=== PATIENT | female | born 1990 | race African-American/Black ===

== ENCOUNTER 2016-09-30 13:59 | Outpatient (CLI) | payer OTHER ==
[2016-09-30] MEDS ORDERED: LACTATED RINGERS 1,000 ML ONE ×2 (14:34→20:55)
[2016-09-30] MEDS ORDERED: LACTATED RINGERS 1,000 ML IV ONE (14:37)
[2016-09-30 15:31] LABS: Basophils % (Auto) 0.2 % (0.0-1.8); Eosinophils % (Auto) 0.8 % (0.0-4.3); Hematocrit 37.4 % (30.3-42.9); Hemoglobin 12.7 gm/dl (10.1-14.3); Mean Corpuscular HGB Conc 34 % (30-34); Mean Corpuscular Hemoglobin 29 pg (28-32); Mean Corpuscular Volume 87 fl (79-97); Platelet Count 246 K/mm3 (140-440); Red Blood Count 4.32 M/mm3 (3.65-5.03); Red Cell Distribution Width 13.7 % (13.2-15.2)
[2016-09-30 16:03] LABS: Bilirubin,Urine NEG (Negative); Blood,Urine SM (Negative); Ketones,Urine NEG (Negative); Leukocyte Esterase,Urine NEG (Negative); Nitrite,Urine NEG (Negative); Protein,Urine <15 mg/dL mg/dL (Negative); Urobilinogen,Urine < 2.0 mg/dL (<2.0)
--- NOTE | 2016-09-30 17:41 | History and Physical Report ---
History of Present Illness Date of examination: 09/30/16 History of present illness: 26 yo EDC 11/11/15 @ 34.1 weeks gestation, presented to triage with c/o contractions. SVE: 4cm. consulted, orders for admit. First trimester entry into care at 7 weeks gestation. course complicated by gestational diabetes with glyburide po, [facility] comang't and short cervix noted at routine scan of 0.9cm with funneling. U/S on 09/13/16: no residual cervix noted. Past History Past Medical History: no pertinent history Past Surgical History: no surgical history Family/Genetic History: none Social history: - Obstetrical History Expected Date of Delivery: 11/10/16 Actual Gestation: 34 Week(s) 1 Day(s) : 2 Para: 1 Number of Living Children: 1 Medications and Allergies Allergies Allergy/AdvReac Type Severity Reaction Status Date / Time No Known Allergies Allergy Verified 09/30/16 14:12 Home Medications Medication Instructions Recorded Confirmed Last Taken Type Pnv with Ca,No.72/Iron/FA [Pnv 1 tab PO DAILY 09/30/16 09/30/16 09/30/16 09:00 History Plus Multivit Tab] 1 glyBURIDE [Glyburide] 1 tab PO BID 09/30/16 09/30/16 09/29/16 21:00 History 1 Review of Systems All systems: negative - Vital Signs Vital signs: Vital Signs Pulse BP 108 H 126/86 09/30/16 14:18 09/30/16 14:18 Temp Pulse Resp BP Pulse Ox 98.1 F 104 H 20 126/86 98 09/30/16 15:00 09/30/16 17:40 09/30/16 15:00 09/30/16 14:18 09/30/16 17:40 - Physical Exam Lungs: Positive: Normal air movement Genitourinary (Female): Positive: normal external genitalia, normal perenium Uterus: Positive: normal size, normal contour - Obstetrical FHR: category 1 Uterine Contraction Monitor Mode: External Cervical Dilatation: 3 Cervical Effacement Percentage: 50 station: high Results Result Diagrams: 09/30/16 14:37 Abnormal lab results 09/30/16 09/30/16 Range/Units 14:37 15:00 Seg Neutrophils % 76.5 H (40.0-70.0) % Ur Specific [place] 1.002 L (1.003-1.030) All other labs normal. Assessment and Plan A: IUP at 34.1 weeks PTL Gestational Diabetes P: MD low;t
[2016-09-30] MEDS ORDERED: MYLICON PO PRN (18:38)
[2016-09-30] MEDS ORDERED: TYLENOL PO PRN (18:38)
[2016-09-30] MEDS ORDERED: SUDAFED PO PRN (18:38)
[2016-09-30] MEDS ORDERED: DEEP SEA NS PRN (18:38)
[2016-09-30] MEDS ORDERED: COLACE PO PRN (18:38)
[2016-09-30] MEDS ORDERED: ZOFRAN IV PRN (18:38)
[2016-09-30] MEDS ORDERED: MILK OF MAGNESIA PO PRN (18:38)
[2016-09-30] MEDS ORDERED: ALUM-MAG HYDROX-SIMETH 200-200-20MG/5ML PO PRN (18:38)
[2016-09-30] MEDS ORDERED: ROBITUSSIN DM PO PRN (18:38)
[2016-09-30] MEDS ORDERED: AMBIEN PO PRN (18:38)
[2016-09-30] MEDS ORDERED: SENOKOT S PO PRN (18:38)
[2016-09-30] MEDS ORDERED: POLYCILLIN/NS 2 GM/100 ML 100 ML IV ONE (19:11)
[2016-09-30] MEDS ORDERED: SUBLIMAZE IV ONE (19:19)
[2016-10-01] MEDS: POLYCILLIN/NS 1 GM/50 ML 50 ML IV SCH ×6 (02:00→21:45)
[2016-10-01] MEDS ORDERED: SUBLIMAZE ONE ×2 (04:14→11:28)
[2016-10-01] MEDS ORDERED: LACTATED RINGERS 1,000 ML ONE (06:04)
--- NOTE | 2016-10-01 09:27 | Progress Note ---
Assessment and Plan HD#1 at 34 weeks PTL irreg contractions continue pain and IVF close monitor nst if labor proceed will implement a dose of BTM ( last dose series 08/25) await MFM consult GDM A1- nl sugars glyburide 2.5mg am and 5mg pm Subjective - Subjective Date of service: 10/01/16 (HD#2 PTL) Principal diagnosis: PTL Patient reports: movement normal, contractions (mild and not feeling them presently ), no loss of fluid, no vaginal bleeding Objective - Vital Signs Vital Signs: Vital Signs - 12hr 09/30/16 09/30/16 09/30/16 22:16 22:21 22:26 Temperature Pulse Rate 107 H 112 H 117 H Pulse Rate [ Right From Monitor] Respiratory Rate Blood Pressure [Right Arm] O2 Sat by Pulse 99 97 98 Oximetry 09/30/16 09/30/16 09/30/16 22:31 22:36 22:41 Temperature 97.1 F L Pulse Rate 116 H 104 H 107 H Pulse Rate [ 118 H Right From Monitor] Respiratory 18 Rate Blood Pressure [Right Arm] O2 Sat by Pulse 99 97 97 Oximetry 09/30/16 09/30/16 09/30/16 22:46 22:51 22:56 Temperature Pulse Rate 104 H 107 H 109 H Pulse Rate [ Right From Monitor] Respiratory Rate Blood Pressure [Right Arm] O2 Sat by Pulse 98 98 97 Oximetry 09/30/16 09/30/16 09/30/16 23:01 23:06 23:11 Temperature Pulse Rate 115 H 115 H 115 H Pulse Rate [ Right From Monitor] Respiratory Rate Blood Pressure [Right Arm] O2 Sat by Pulse 97 98 98 Oximetry 09/30/16 09/30/16 10/01/16 23:16 23:21 04:02 Temperature Pulse Rate 114 H 122 H 116 H Pulse Rate [ Right From Monitor] Respiratory Rate Blood Pressure [Right Arm] O2 Sat by Pulse 96 96 99 Oximetry 10/01/16 10/01/16 10/01/16 04:07 04:12 04:15 Temperature Pulse Rate 98 H 93 H 98 H Pulse Rate [ Right From Monitor] Respiratory Rate Blood Pressure [Right Arm] O2 Sat by Pulse 100 98 94 Oximetry 10/01/16 10/01/16 10/01/16 04:17 04:22 04:23 Temperature Pulse Rate 101 H 93 H Pulse Rate [ Right From Monitor] Respiratory 18 Rate Blood Pressure [Right Arm] O2 Sat by Pulse 96 98 Oximetry 10/01/16 10/01/16 10/01/16 04:27 04:32 04:37 Temperature Pulse Rate 87 93 H 94 H Pulse Rate [ Right From Monitor] Respiratory Rate Blood Pressure [Right Arm] O2 Sat by Pulse 98 100 100 Oximetry 10/01/16 10/01/16 10/01/16 04:42 04:47 04:52 Temperature Pulse Rate 84 82 83 Pulse Rate [ Right From Monitor] Respiratory Rate Blood Pressure [Right Arm] O2 Sat by Pulse 100 100 100 Oximetry 10/01/16 10/01/16 10/01/16 04:57 05:02 05:07 Temperature Pulse Rate 76 93 H 92 H Pulse Rate [ Right From Monitor] Respiratory Rate Blood Pressure [Right Arm] O2 Sat by Pulse 100 97 97 Oximetry 10/01/16 10/01/16 10/01/16 05:12 05:17 05:22 Temperature Pulse Rate 89 86 81 Pulse Rate [ Right From Monitor] Respiratory Rate Blood Pressure [Right Arm] O2 Sat by Pulse 96 96 97 Oximetry 10/01/16 10/01/16 10/01/16 05:27 05:32 05:37 Temperature Pulse Rate 86 85 85 Pulse Rate [ Right From Monitor] Respiratory Rate Blood Pressure [Right Arm] O2 Sat by Pulse 96 97 96 Oximetry 10/01/16 10/01/16 10/01/16 05:42 05:47 05:52 Temperature Pulse Rate 82 82 76 Pulse Rate [ Right From Monitor] Respiratory Rate Blood Pressure [Right Arm] O2 Sat by Pulse 97 98 98 Oximetry 10/01/16 10/01/16 10/01/16 08:21 08:23 08:28 Temperature 98.1 F Pulse Rate 96 H 118 H Pulse Rate [ 95 H Right From Monitor] Respiratory 18 Rate Blood Pressure 114/72 [Right Arm] O2 Sat by Pulse 100 100 99 Oximetry - Exam Breasts: normal Cardiovascular: Regular rate, Normal S1, Normal S2, No murmurs Abdomen: Present: normal appearance, soft, normal bowel sounds. Absent: distention, tenderness Vulva: both: normal Uterus: Present: normal FHR: auscultation normal, category 1 Uterine Contraction Monitor Mode: External Cervical Dilatation: 3 Cervical Effacement Percentage: 50 station: -4 Uterine Contraction Pattern: Irregular Uterine Contraction Intensity: Mild Deep Tendon Reflex Grade: Normal +2 - Labs Labs: Abnormal Labs 09/30/16 09/30/16 10/01/16 14:37 15:00 00:21 Seg Neutrophils % 76.5 H POC Glucose 69 L Ur Specific [place] 1.002 L Laboratory Results - last 24 hr 09/30/16 09/30/16 09/30/16 14:37 15:00 15:00 WBC 10.0 RBC 4.32 Hgb 12.7 Hct 37.4 MCV 87 MCH 29 MCHC 34 RDW 13.7 Plt Count 246 Lymph % (Auto) 16.8 [place] % (Auto) 5.7 Eos % (Auto) 0.8 Baso % (Auto) 0.2 Lymph # 1.7 [place] # 0.6 Eos # 0.1 Baso # 0.0 Seg Neutrophils % 76.5 H Seg Neutrophils # 7.6 POC Glucose Urine Color Straw Urine Turbidity Clear Urine pH 7.0 Ur Specific [place] 1.002 L Urine Protein <15 mg/dl Urine Glucose (UA) Neg Urine Ketones Neg Urine Blood Sm Urine Nitrite Neg Urine Bilirubin Neg Urine Urobilinogen < 2.0 Ur Leukocyte Esterase Neg Urine WBC (Auto) 0.0 Urine RBC (Auto) 0.0 Blood Type B POSITIVE Antibody Screen Negative 09/30/16 10/01/16 10/01/16 21:47 00:21 06:19 WBC RBC Hgb Hct MCV MCH MCHC RDW Plt Count Lymph % (Auto) [place] % (Auto) Eos % (Auto) Baso % (Auto) Lymph # [place] # Eos # Baso # Seg Neutrophils % Seg Neutrophils # POC Glucose 69 L 73 Urine Color Urine Turbidity Urine pH Ur Specific [place] Urine Protein Urine Glucose (UA) Urine Ketones Urine Blood Urine Nitrite Urine Bilirubin Urine Urobilinogen Ur Leukocyte Esterase Urine WBC (Auto) Urine RBC (Auto) Blood Type B POSITIVE Antibody Screen Negative - Results US- obstetric: report reviewed
[2016-10-01] MEDS: DIABETA PO SCH ×2 (09:30→17:19)
[2016-10-01] MEDS: PRENATAL VITAMIN PO SCH (10:26)
--- NOTE | 2016-10-01 10:37 | Ultrasound Report ---
OB sonogram followup: Gestation: Single Position: Cephalic Amniotic Fluid: DIMLA = 9.2 cm Placenta: Posterior Placental Grade: 2 Heart Rate: 134 BPM Cervical length: cm (Normal > 3 cm) BPD: 8.4 cm = 33 w 5 d HC: 30.8 cm = 34 w 2 d AC: 29.1 cm = 33 w 0 d FL: 6.6 cm = 34 w 0 d HC/AC Ratio: 1.06 Estimated Weight: 2211 grams US Gest. Age = 33 w 5 d EDC: 11/13/16. BIOPHYSICAL PROFILE: 2 - breathing movements 2 - movements 2 - posture and tone 2 - Qualitative amniotic fluid volume Headache - TOTAL SCORE OF POSSIBLE 8 Heart Rate (bpm) 134
--- NOTE | 2016-10-01 10:37 | Ultrasound Report ---
OB sonogram followup: Gestation: Single Position: Cephalic Amniotic Fluid: DILMA = 9.2 cm Placenta: Posterior Placental Grade: 2 Heart Rate: 134 BPM Cervical length: cm (Normal > 3 cm) BPD: 8.4 cm = 33 w 5 d HC: 30.8 cm = 34 w 2 d AC: 29.1 cm = 33 w 0 d FL: 6.6 cm = 34 w 0 d HC/AC Ratio: 1.06 Estimated Weight: 2211 grams US Gest. Age = 33 w 5 d EDC: 11/13/16. BIOPHYSICAL PROFILE: 2 - breathing movements 2 - movements 2 - posture and tone 2 - Qualitative amniotic fluid volume Headache - TOTAL SCORE OF POSSIBLE 8 Heart Rate (bpm) 134
[2016-10-01] MEDS ORDERED: SUBLIMAZE IV PRN ×2 (11:33→21:31)
[2016-10-01] MEDS: LACTATED RINGERS 1,000 ML IV SCH (16:23)
[2016-10-02] MEDS: LACTATED RINGERS 1,000 ML IV SCH (00:36)
[2016-10-02] MEDS: POLYCILLIN/NS 1 GM/50 ML 50 ML IV SCH ×4 (02:04→14:10)
--- NOTE | 2016-10-02 08:16 | Progress Note ---
Assessment and Plan A: HD#3 IUP at 34w3d with labor, currently arrested at 3 cm H/o of shortened cervix, now with no residual cervix Gestational Diabetes on glyburide 2.5 mg q am and 5 mg q pm - stable P: Pt currently stable. Awaiting MFM consult for recommendations regarding disposition. Continue to monitor clinical status. Subjective - Subjective Date of service: 10/02/16 Principal diagnosis: PTL at 34w3d, 3 cm dilated, no residual cervix, gestational diabetes Interval history: Pt denies any regular contractions overnight. Patient reports: movement normal, no loss of fluid, no vaginal bleeding, no contractions Objective - Vital Signs Vital Signs: Vital Signs - 12hr 10/01/16 10/02/16 10/02/16 21:41 00:14 04:13 Temperature 98.2 F Pulse Rate 116 H 103 H Pulse Rate [ 100 H Right From Monitor] Respiratory 20 18 Rate Blood Pressure 105/72 [Right Arm] O2 Sat by Pulse 99 94 Oximetry 10/02/16 04:14 Temperature 98.0 F Pulse Rate 95 H Pulse Rate [ 97 H Right From Monitor] Respiratory 18 Rate Blood Pressure 106/66 [Right Arm] O2 Sat by Pulse 98 Oximetry - Exam Breasts: deferred Cardiovascular: Regular rate Lungs: Clear to auscultation Abdomen: Present: soft (obese, gravid ) Uterus: Present: normal (gravid ) FHR: auscultation normal Uterine Contraction Monitor Mode: External Uterine Contraction Pattern: Absent Uterine Tone Measurement Phase: Resting Extremities: normal - Labs Labs: Abnormal Labs 09/30/16 09/30/16 10/01/16 14:37 15:00 00:21 Seg Neutrophils % 76.5 H POC Glucose 69 L Ur Specific [place] 1.002 L 10/01/16 10:36 Seg Neutrophils % POC Glucose 111 H Ur Specific [place] Laboratory Results - last 24 hr 10/01/16 10/01/16 10/01/16 10:36 15:16 19:58 POC Glucose 111 H 74 82 10/02/16 05:48 POC Glucose 90 - Results US- obstetric: report reviewed
[2016-10-02] MEDS: DIABETA PO SCH ×2 (08:27→16:53)
[2016-10-02] MEDS: PRENATAL VITAMIN PO SCH (09:50)
[2016-10-02 16:04] VITALS: BP 110/78
--- NOTE | 2016-10-02 16:43 | Discharge Summary ---
Providers - Providers Date of Admission: 09/30/16 Date of discharge: 10/02/16 Attending physician: ENZO KELLER MD 09/30/16 18:57 Consult to Physician [CONS] Routine Consulting Provider: SANTOS WINTER Reason For Exam: [address] consult to:: [facility] Notified:: yes Was contact made?: Yes If yes, spoke with:: Dr. Michel Keller spoke with Dr. Winter Time called:: 19:00 Comment:: called by Dr. Keller on 09/30/2016. Primary care physician: JOSHUA HU Hospitalization Reason for admission: labor Discharge diagnosis: other (IUP at 34wks, labor ) Hospital course: Pt was admitted for prolonged observation and has not progressed over 48 hours. She was given IV hydration and had an ultrasound as well as an MFM consult while hospitalized. Condition at discharge: Stable Disposition: DISCHARGED TO HOME OR SELFCARE - Discharge Diagnoses (1) Status: Acute Qualifiers: Weeks of gestation: 34 weeks Qualified Code(s): Z3A.34 - 34 weeks gestation of (2) labor in third trimester Status: Acute Qualifiers: labor delivery status: without delivery Qualified Code(s): O60.03 - labor without delivery, third trimester (3) Obesity (BMI 30.0-34.9) Status: Acute Plan - Provider Discharge Summary Activity: routine (bedrest ) Diet: routine Instructions: routine Additional instructions: [] Smoking cessation referral if applicable(refer to patient education folder for contact #) [] Refer to [facility] Booklet Call your doctor immediately for: * Fever > 100.5 * Heavy vaginal bleeding ( >1 pad per hour) * Severe persistent headache * Shortness of breath * Reddened, hot, painful area to leg or breast * Drainage or odor from incision. * Keep incision clean and dry at all times and follow doctor's instructions regarding bathing/showering PLEASE FOLLOW UP AT SCHEDULED [facility] VISITS - Follow up plan Follow up: DINORA DISLA MD [Staff Physician] - 7 Days
--- NOTE | 2016-10-02 16:43 | Event Note ---
Date: 10/02/16 Spoke with [facility] pain management nurse practitioner physician. Reports that pt is stable and able to go home with labor precautions. Pt scheduled to be seen tomorrow at primary OB.
--- NOTE | 2016-10-02 16:44 | Consultation ---
History of Present Illness Consult date: 10/02/16 Requesting physician: DINORA DISLA Reason for consult: contractions History of present illness: Thank you for your recent consultation regarding the above named patient. As you are likely aware this is a 26-year-old para 1001 with at 34 weeks. This patient has been referred to [facility] due to intermittent episodes of contractions since LAST night. Patient has a history of GDM Her cervical dilation was 4 cm. Her FFN on admission was positive. Patient is currently not navarro and had not had further evidence of labor. PAST OB HISTORY: * 2015: at term. BW: 4 kg. PAST MEDICAL HISTORY: * Patient denies hypertension, diabetes or asthma. [facility] Ultrasonography: * See notes in patients chart when completed. * SIUP. Living intrauterine . AUA: 34 weeks * BPP: 04/17FHR: 134 BPM Physical Examination and Lab Testing: See notes in patients chart SVE: deferred. Admission Labs: See patients hospital chart FSG values: 90, 90, 82, 74, 111 Past History Past Medical History: no pertinent history Past Surgical History: no surgical history Family/Genetic History: none - Obstetrical History : 2 Medications and Allergies Allergies Allergy/AdvReac Type Severity Reaction Status Date / Time No Known Allergies Allergy Verified 09/30/16 14:12 Home Medications Medication Instructions Recorded Confirmed Last Taken Type Pnv with Ca,No.72/Iron/FA [Pnv 1 tab PO DAILY 09/30/16 09/30/16 09/30/16 09:00 History Plus Multivit Tab] 1 glyBURIDE [Glyburide] 1 tab PO BID 09/30/16 09/30/16 09/29/16 21:00 History 1 Active Meds: Active Medications Acetaminophen (Tylenol) 650 mg PO Q4H PRN PRN Reason: Pain MILD(1-3)/Fever >100.5/SARGENT Al Hydrox/Mg Hydrox/Simethicone (Alum-Mag Hydrox-Simeth [phone]/5ml) 30 ml PO Q6H PRN PRN Reason: Indigestion Docusate Sodium (Colace) 100 mg PO Q12H PRN PRN Reason: Constipation Fentanyl (Sublimaze) 50 mcg IV Q2H PRN PRN Reason: Pain Last Admin: 10/01/16 21:41 Dose: 50 mcg Glyburide (Diabeta) 2.5 mg PO BIDDIAB [facility] Last Admin: 10/02/16 08:27 Dose: 2.5 mg Guaifenesin (Robitussin Dm) 10 ml PO Q6H PRN PRN Reason: Cough Ampicillin Sodium (Polycillin/Ns 1 Gm/50 Ml) 50 mls @ 100 mls/hr IV Q4HR [facility] PRN Reason: Protocol Last Admin: 10/02/16 14:10 Dose: 100 mls/hr Lactated Ringer's (Lactated Ringers) 1,000 mls @ 125 mls/hr IV DIRECT [facility] Last Admin: 10/02/16 00:36 Dose: 125 mls/hr Magnesium Hydroxide (Milk Of Magnesia) 30 ml PO QHS PRN PRN Reason: Laxative Effect Multivitamins/Iron/Calcium ( Vitamin) 1 each PO QDAY [facility] Last Admin: 10/02/16 09:50 Dose: 1 each Ondansetron HCl (Zofran) 4 mg IV Q6H PRN PRN Reason: Nausea And Vomiting Pseudoephedrine HCl (Sudafed) 30 mg PO Q4H PRN PRN Reason: Nasal Congestion Senna/Docusate Sodium (Senokot S) 2 tab PO Q12H PRN PRN Reason: Laxative Effect Simethicone (Mylicon) 80 mg PO Q6H PRN PRN Reason: Gas pain Sodium Chloride (Deep Sea) 2 spray NS Q4H PRN PRN Reason: Congestion Zolpidem Tartrate (Ambien) 10 mg PO ONCE PRN PRN Reason: Sleep - Vital Signs Vital signs: Vital Signs Pulse BP 108 H 126/86 09/30/16 14:18 09/30/16 14:18 Temp Pulse Resp BP Pulse Ox 97.4 F L 91 H 18 110/78 98 10/02/16 16:03 10/02/16 16:03 10/02/16 16:03 10/02/16 16:03 10/02/16 04:14 Results Result Diagrams: 09/30/16 14:37 All other labs normal. Assessment and Plan ASSESSMENT / DIAGNOSIS As stated above this is an IUP at 34 weeks with complaints of contractions. Gestational diabetes. Well controlled. Likely false labor. This patients current presentation places are at some risk for delivery. We would suggest caution with any further tocolysis at the current EGA and EFW. Patient is stable for DISCHARGE home. RECOMMENDATIONS: 1. We are in agreement with initial admission to [facility]. 2. Patient complains of ongoing (yet improved) pain but has no objective evidence to suggest impending labor. 3. Consider discharge home 4. Given the risk vs benefits in this case we would NOT recommend steroids due to EGA and GDM. 5. We recommend discharge home when stable. 6. Patient should follow-up with [facility] in 1-2 weeks. 7. I reviewed the signs of labor with the patient. 8. Thank you for allowing us to participate in the care of this patient. 9. We look forward to the opportunity to assist in her continued management. 10. If you have any questions, please contact our office at [phone]. Thank you for allowing us to participate in the care of this patient. We look forward to the opportunity to assist in her continued management. If you have any questions, please contact our office at [phone]. Refugio Patton M.D.
== END 2016-10-02 17:13 | disposition home or self-care (01) ==
LOC: TRG 13:59 → LD 18:50 → TRG 10-02 17:13
PROVIDERS: ATTEND Obstetrics & Gynecology
DX: O77.9 Labor and delivery complicated by fetal stress, unspecified (principal); O47.03 False labor before 37 completed weeks of gestation, third trimester; Z3A.35 35 weeks gestation of pregnancy
CPT/HCPCS: 36415; 59025; 76816; 76819; 81001; 82962; 85025; 86850; 86900; 86901; 96360; J0290; J3010; J7120

== ENCOUNTER 2016-10-10 12:43 | Outpatient (CLI) | payer OTHER ==
[2016-10-10] MEDS ORDERED: LACTATED RINGERS 1,000 ML ONE (13:29)
[2016-10-10] MEDS ORDERED: LACTATED RINGERS 500 ML IV ONE (13:42)
[2016-10-10 13:59] VITALS: BP 104/68
[2016-10-10 14:34] LABS: Bilirubin,Urine NEG (Negative); Blood,Urine MOD (Negative); Ketones,Urine NEG (Negative); Leukocyte Esterase,Urine TR (Negative); Mucus,Urine FEW /HPF; Nitrite,Urine NEG (Negative); Protein,Urine <15 mg/dL mg/dL (Negative); Urobilinogen,Urine < 2.0 mg/dL (<2.0)
== END 2016-10-10 16:31 | disposition home or self-care (01) ==
LOC: TRG 12:43
PROVIDERS: ATTEND Obstetrics & Gynecology
DX: O47.03 False labor before 37 completed weeks of gestation, third trimester (principal); Z3A.36 36 weeks gestation of pregnancy
CPT/HCPCS: 81001; J7120

== ENCOUNTER 2016-10-27 23:01 | Inpatient (IN) | payer OTHER ==
[2016-10-27] MEDS ORDERED: MINERAL OIL PO PRN (23:36)
[2016-10-27] MEDS ORDERED: SUBLIMAZE IV PRN (23:36)
[2016-10-27] MEDS ORDERED: ePHEDrine SULFATE IV PRN (23:36)
[2016-10-27] MEDS ORDERED: XYLOCAINE 2% INFILTRATI ONE (23:36)
[2016-10-27] MEDS ORDERED: POLYCILLIN/NS 2 GM/100 ML 2 GM/100 ML BAG IV ONE (23:36)
[2016-10-27] MEDS ORDERED: ZOFRAN IV PRN (23:36)
[2016-10-27] MEDS ORDERED: BRETHINE SUB-Q PRN (23:36)
[2016-10-27] MEDS ORDERED: STADOL IV PRN (23:36)
[2016-10-27] MEDS ORDERED: BRETHINE IVP PRN (23:36)
[2016-10-27] MEDS ORDERED: NARCAN 0.4 MG/1 ML IV PRN (23:36)
[2016-10-27] MEDS ORDERED: PITOCin/NS 30 UNIT/500ML 30,000 MILLIUNITS/500 ML BAG IV SCH (23:45)
[2016-10-27] MEDS ORDERED: PITOCin/NS 20 UNIT/1000ML DRIP 20,000 MILLIUNITS/1,000 ML BAG IV SCH (23:45)
[2016-10-27] MEDS ORDERED: LACTATED RINGERS 1,000 ML IV SCH (23:45)
[2016-10-28 00:11] LABS: Hematocrit 38.5 % (30.3-42.9); Hemoglobin 12.8 gm/dl (10.1-14.3); Mean Corpuscular HGB Conc 33 % (30-34); Mean Corpuscular Hemoglobin 29 pg (28-32); Mean Corpuscular Volume 86 fl (79-97); Platelet Count 248 K/mm3 (140-440); Red Blood Count 4.45 M/mm3 (3.65-5.03); White Blood Count 10.2 K/mm3 (4.5-11.0)
--- NOTE | 2016-10-28 00:53 | History and Physical Report ---
History of Present Illness Date of examination: 10/28/16 Date of admission: 10/27/16 23:29 Chief complaint: rupture of membranes History of present illness: Pt is a 26 year old female NETO 11/10/16 at 38w1d who presents with rupture of membranes at 2230 PM with advanced cervical dilation of 5 cm. She denies vaginal bleeding. She has had care at [facility] since 7 wks complicated by gestational diabetes A1 on glyburide 2.5 mg Q AM and 5 mg PO QHS, shortened cervix with steroid administration in September 2015 and labor with arrest at 3 cm. She is GBS positive. Past History Past Medical History: no pertinent history Past Surgical History: no surgical history Family/Genetic History: none Social history: - Obstetrical History Expected Date of Delivery: 11/10/16 Actual Gestation: 38 Week(s) 1 Day(s) : 2 Para: 1 Hx # Term Pregnancies: 1 Number of Pregnancies: 0 Spontaneous Abortions: 0 Induced : 0 Number of Living Children: 1 Medications and Allergies Allergies Allergy/AdvReac Type Severity Reaction Status Date / Time No Known Allergies Allergy Verified 09/30/16 14:12 Home Medications Medication Instructions Recorded Confirmed Last Taken Type Pnv with Ca,No.72/Iron/FA [Pnv 1 tab PO DAILY 09/30/16 09/30/16 09/30/16 09:00 History Plus Multivit Tab] 1 glyBURIDE [Glyburide] 1 tab PO BID 09/30/16 09/30/16 09/29/16 21:00 History 1 Active Meds: Active Medications Butorphanol Tartrate (Stadol) 2 mg IV Q2H PRN PRN Reason: Pain , Severe (7-10) Fentanyl (Sublimaze) 100 mcg IV Q2H PRN PRN Reason: Labor Pain Ampicillin Sodium (Polycillin/Ns 1 Gm/50 Ml) 1 gm in 50 mls @ 100 mls/hr IV Q4H [facility] PRN Reason: Protocol Lactated Ringer's (Lactated Ringers) 1,000 mls @ 125 mls/hr IV DIRECT [facility] Oxytocin/Sodium Chloride (Pitocin/Ns 20 Unit/1000ml Drip) 20,000 milliunits in 1,000 mls @ 125 mls/hr IV DIRECT [facility] Oxytocin/Sodium Chloride (Pitocin/Ns 30 Unit/500ml) 30,000 milliunits in 500 mls @ 4 mls/hr IV TITR [facility] PRN Reason: Protocol Mineral Oil (Mineral Oil) 30 ml PO QHS PRN PRN Reason: Constipation Naloxone HCl (Narcan 0.4 Mg/1 Ml) 0.1 mg IV Q2MIN PRN PRN Reason: Res Rate </= 8 or 02 SAT < 92% Ondansetron HCl (Zofran) 4 mg IV Q8H PRN PRN Reason: Nausea And Vomiting Review of Systems All systems: negative - Vital Signs Vital signs: Vital Signs Pulse BP Pulse Ox 106 H 120/81 100 10/28/16 00:00 10/28/16 00:00 10/28/16 00:00 Temp Pulse Resp BP Pulse Ox 113 H 113/67 97 10/28/16 00:44 10/28/16 00:44 10/28/16 00:44 - Physical Exam Breasts: Positive: deferred Cardiovascular: Regular rate Lungs: Positive: Clear to auscultation Abdomen: Positive: normal appearance (gravid ) Genitourinary (Female): Positive: normal external genitalia Uterus: Positive: enlarged (gravid ) Extremities: Positive: normal - Obstetrical FHR: category 2 Uterine Contraction Monitor Mode: External Cervical Dilatation: 7 Cervical Effacement Percentage: 100 station: 0 Uterine Contraction Pattern: Regular Uterine Tone Measurement Phase: Resting Uterine Contraction Intensity: Strong/Firm Results Result Diagrams: 10/27/16 23:51 All other labs normal. Assessment and Plan A: IUP at 38w1d SROM Active labor Gestational Diabetes A1 on Glyburide GBS positive P: Admit to labor and delivery GBS prophylaxis Accuchek Routine intrapartum care.
--- NOTE | 2016-10-28 00:57 | Procedure Note ---
OB Delivery Note - Delivery Date of Delivery: 10/28/16 Surgeon: DINORA DISLA Estimated blood loss: other (400 mL) - Vaginal Delivery presentation: vertex Delivery position: OA Intrapartum events: precipitous labor- <3hr Delivery monitor: external FHT, external uterine Route of delivery: Delivery placenta: spontaneous Delivery cord: 3 umbilical vessels Episiotomy: none Delivery laceration: 2nd degree Delivery repair: vicryl Anesthesia: local, intravenous Delivery comments: Patient rapidly progressed from 5 cm to 7 cm to delivery of a viable female via spontaneous vaginal delivery over intact perineum under no anesthesia. The doctor national sales consultant was en route. Delivery attended by Heena BLANK. Upon entry into the patient's room, the was delivered, cord clamped and cut, and the placenta had been delivered. Her vagina and perineum were explored. A second-degree perineal laceration was repaired with 2-0 Vicryl in a standard fashion under local anesthesia. EBL 400 mL - A at 1 minute: 8 at 5 minutes: 9 Infant Gender: Female (3004 g (6lb 10 oz) @ 00:12 am)
[2016-10-28] MEDS ORDERED: PERCOCET 5/325 PO PRN (02:48)
[2016-10-28] MEDS ORDERED: DULCOLAX PR PRN (02:48)
[2016-10-28] MEDS ORDERED: BENADRYL PO PRN (02:48)
[2016-10-28] MEDS ORDERED: MILK OF MAGNESIA PO PRN (02:48)
[2016-10-28] MEDS ORDERED: PITOCin/NS 20 UNIT/1000ML DRIP 20 UNIT/1,000 ML BAG IV SCH (02:48)
[2016-10-28] MEDS ORDERED: SODIUM CHLORIDE FLUSH SYRINGE 10 ML IV PRN (02:48)
[2016-10-28] MEDS ORDERED: PHENERGAN PR PRN (02:48)
[2016-10-28] MEDS ORDERED: TYLENOL PO PRN (02:48)
[2016-10-28] MEDS ORDERED: LANSINOH TP PRN (02:48)
[2016-10-28] MEDS ORDERED: ZOFRAN IV PRN (02:48)
[2016-10-28] MEDS ORDERED: PHENERGAN PO PRN (02:48)
[2016-10-28] MEDS: TUCKS PAD TP PRN (03:22)
[2016-10-28] MEDS: DERMOPLAST TP PRN (03:23)
[2016-10-28] MEDS ORDERED: POLYCILLIN/NS 1 GM/50 ML 1 GM/50 ML BAG IV SCH (04:00)
[2016-10-28] MEDS: MOTRIN PO SCH (04:41)
[2016-10-28] MEDS: FEOSOL PO SCH ×2 (10:10→22:00)
[2016-10-28] MEDS: PRENATAL VITAMIN PO SCH (10:10)
[2016-10-28] MEDS ORDERED: FLUARIX QUAD 2016-2017(36 MOS+) IM ONE (12:00)
[2016-10-28 15:10] LABS: Hematocrit 32.8 % (30.3-42.9); Hemoglobin 11.2 gm/dl (10.1-14.3)
[2016-10-29] MEDS ORDERED: M-M-R II VACCINE SUB-Q ONE (00:58)
[2016-10-29] MEDS: DERMOPLAST TP PRN (06:00)
[2016-10-29] MEDS: MOTRIN PO SCH ×3 (06:00→23:37)
[2016-10-29] MEDS ORDERED: BOOSTRIX IM ONE ×2 (06:00→22:30)
[2016-10-29] MEDS: TUCKS PAD TP PRN (06:35)
--- NOTE | 2016-10-29 08:12 | Progress Note ---
Assessment and Plan A: PPD#1 s/p at term; GBS positive with inadequate treatment so baby must be observed for 48 hrs P: Discharge early tomorrow morning with follow up in 4 wks at the office. Subjective - Subjective Date of service: 10/29/16 Principal diagnosis: s/p at term Interval history: No overnight events. Pt and her would like to go home as soon as possible because her needs to work tomorrow. Patient reports: appetite normal, voiding normally, pain well controlled, ambulating normally, no nauseated [place]: doing well Objective - Vital Signs Latest vital signs: Vital Signs Temp Pulse Resp BP 10/29/16 01:30 98.7 F 105 H 18 107/75 10/28/16 16:05 98.1 F 80 18 100/66 10/28/16 12:50 98.0 F 70 18 104/66 Intake and Output 10/28/16 10/29/16 10/29/16 22:59 06:59 14:59 Intake Total 1080 240 Output Total 250 Balance 830 240 Intake: Oral 240 Intake, Free Water 840 240 Output: Urine 250 Void 250 Other: Total, Intake Amount 240 Total, Output Amount 250 # Voids Void 2 1 - Exam Breasts: Present: deferred Cardiovascular: Present: Regular rate Lungs: Present: Clear to auscultation Abdomen: Present: soft Uterus: Present: fundal height below umbilicus Extremities: Present: normal
--- NOTE | 2016-10-29 08:16 | Discharge Summary ---
Providers - Providers Date of Admission: 10/27/16 23:29 Date of discharge: 10/30/16 Attending physician: DINORA DISLA 10/28/16 02:48 Consult to Activity Therapist [CONS] Routine Reason For Exam: assistance with , SNS Primary care physician: JOSHUA HU Hospitalization Reason for admission: active labor Delivery: Procedure details: Please see delivery note. Episiotomy: none Laceration: 2nd degree Other procedures: none complications: none Discharge diagnosis: IUP at term delivered baby: female Hospital course: Patient underwent spontaneous vaginal delivery which she tolerated well. Her course was uncomplicated and she met discharge criteria on postoperative day #2. She'll follow up in the office in 4 weeks for examination. Condition at discharge: Stable Disposition: DISCHARGED TO HOME OR SELFCARE - Discharge Diagnoses (1) Term of female Status: Acute (2) Gestational diabetes mellitus (GDM) affecting Status: Acute Plan - Discharge Medications Prescriptions: Ferrous Sulfate [Feosol 325 MG tab] 325 mg PO BID #60 tablet Ibuprofen [Motrin] 800 mg PO Q8HR PRN #30 tablet PRN Reason: Pain oxyCODONE /ACETAMINOPHEN [Percocet 5/325] 1 tab PO Q6HR PRN #30 tablet PRN Reason: Pain Vit-Fe Fumar-FA [ Vitamin] 1 tab PO QDAY #30 tablet - Provider Discharge Summary Activity: routine, no sex for 6 weeks, no heavy lifting 4 weeks, no strenuous exercise Diet: routine Instructions: routine Additional instructions: [] Smoking cessation referral if applicable(refer to patient education folder for contact #) [] Refer to [facility] Booklet Call your doctor immediately for: * Fever > 100.5 * Heavy vaginal bleeding ( >1 pad per hour) * Severe persistent headache * Shortness of breath * Reddened, hot, painful area to leg or breast * Drainage or odor from incision. * Keep incision clean and dry at all times and follow doctor's instructions regarding bathing/showering - Follow up plan Follow up: DINORA DISLA MD [Staff Physician] - 11/27/16 ( exam )
[2016-10-29] MEDS ORDERED: FLUARIX QUAD 2016-2017(36 MOS+) IM ONE (12:00)
[2016-10-29] MEDS: FEOSOL PO SCH ×2 (12:15→23:39)
[2016-10-29] MEDS: PRENATAL VITAMIN PO SCH (12:15)
[2016-10-30] MEDS: MOTRIN PO SCH (06:29)
[2016-10-30] MEDS: TUCKS PAD TP PRN (06:38)
[2016-10-30 10:03] VITALS: BP 106/66
== END 2016-10-30 09:40 | disposition home or self-care (01) | DRG 775 ==
LOC: TRG 23:01 → LD 23:29 → OB 10-28 02:53
PROVIDERS: ADMIT Obstetrics & Gynecology; ATTEND Obstetrics & Gynecology
PROC: 10E0XZZ Delivery of Products of Conception, External Approach (ICD-10-PCS; principal; 2016-10-28)
PROC: 0KQM0ZZ Repair Perineum Muscle, Open Approach (ICD-10-PCS; 2016-10-28)
DX: O42.02 Full-term premature rupture of membranes, onset of labor within 24 hours of rupture (principal); O99.824 Streptococcus B carrier state complicating childbirth; Z37.0 Single live birth; Z3A.38 38 weeks gestation of pregnancy; O24.429 Gestational diabetes mellitus in childbirth, unspecified control; O62.3 Precipitate labor; O70.1 Second degree perineal laceration during delivery
CPT/HCPCS: 36415; 82962; 85014; 85018; 85027; 86850; 86900; 86901; 88307; 90471; 90686; 90715; J0290; J0595; J2590; J7120